=== PATIENT | female | born 1975 | race Caucasian/White ===

== ENCOUNTER 2017-06-09 23:35 | Observation (INO) | payer OTHER ==
[2017-06-10 00:09] LABS: URINE HCG POC HCG POSITIVE (Negative)
[2017-06-10 00:15] LABS: BILIRUBIN,URINE SMALL (NEG); CLARITY,URINE CLEAR; COLOR,URINE AMBER; GLUCOSE,URINE NEGATIVE (NEG); NITRITE,URINE NEGATIVE (NEG); PROTEIN,URINE 30 mg/dL (NEG-TRACE)
[2017-06-10 00:25] LABS: BACTERIA,URINE MODERATE /HPF (0-FEW); RBC,URINE OCC /HPF (0-2); SQUAMOUS EPITHELIAL CELL,UR MANY /LPF
[2017-06-10] MEDS: IV NORMAL SALINE 1000ML BAG 1,000 ML IV ×2 (00:26)
[2017-06-10 00:42] LABS: ADD MAN DIFF? NO
[2017-06-10 00:47] LABS: BASO % 0 % (0-3); EOS # 0.4 x10^3/uL (0.0-0.7); EOS % 3 % (0-3); HEMATOCRIT 41.5 % (36.0-47.0); HEMOGLOBIN 13.5 g/dL (12.0-15.5); LYMPH % 18 % (24-48); MEAN CORPUSCULAR HEMOGLOBIN 28 pg (25-35); MEAN CORPUSCULAR HGB CONC 32 g/dL (31-37); MEAN CORPUSCULAR VOLUME 85 fL (79-100); MONO # 0.6 x10^3/uL (0.0-1.1); MONO % 6 % (0-9); NEUT # 8.3 x10^3uL (1.8-7.7); NEUT % 73 % (31-73); PLATELET COUNT 437 x10^3/uL (140-400); RED BLOOD COUNT 4.89 x10^6/uL (3.50-5.40); RED CELL DISTRIBUTION WIDTH 14.5 % (11.5-14.5); WHITE BLOOD COUNT 11.4 x10^3/uL (4.0-11.0)
[2017-06-10 00:57] LABS: ANION GAP 7 (6-14); BLOOD UREA NITROGEN 11 mg/dL (7-20); BUN/CREATININE RATIO 16 (6-20); CALCIUM 8.4 mg/dL (8.5-10.1); CARBON DIOXIDE 31 mmol/L (21-32); CHLORIDE 99 mmol/L (98-107); CREATININE 0.7 mg/dL (0.6-1.0); GFR 92.2; GLUCOSE 166 mg/dL (70-99); POTASSIUM 4.1 mmol/L (3.5-5.1); SODIUM 137 mmol/L (136-145)
[2017-06-10 01:11] LABS: ALBUMIN 3.4 g/dL (3.4-5.0); ALBUMIN/GLOBULIN RATIO 0.9 (1.0-1.7); ALK PHOS 75 U/L (46-116); ALT (SGPT) 38 U/L (14-59); AST (SGOT) 24 U/L (15-37); TOTAL BILIRUBIN 0.1 mg/dL (0.2-1.0); TOTAL PROTEIN 7.4 g/dL (6.4-8.2)
[2017-06-10] MEDS ORDERED: IV NORMAL SALINE 1000ML BAG 1,000 ML IV ×2 (02:30)
[2017-06-10] MEDS: ONDANSETRON PF 4 MG/2 ML VIAL. IV ×2 (03:06)
[2017-06-10] MEDS: fentaNYL PF VIAL 100 MCG/2 ML VIAL IV ×6 (03:07→05:44)
[2017-06-10] MEDS ORDERED: MIDAZOLAM HCL/PF 2 MG/2 ML VIAL. ×2 (03:22)
[2017-06-10] MEDS ORDERED: SUCCINYLCHOLINE 200 MG/10 ML VIAL. ×2 (03:22)
[2017-06-10] MEDS ORDERED: fentaNYL PF VIAL 100 MCG/2 ML VIAL ×6 (03:22→05:27)
[2017-06-10] MEDS ORDERED: SEVOFLURANE 61 TO 120 MINUTES. IH ×2 (03:22)
[2017-06-10] MEDS ORDERED: ROCURONIUM 50 MG/5 ML VIAL. ×2 (03:23)
[2017-06-10] MEDS ORDERED: NEOSTIGMINE METHYLSULFATE 5 MG/5 ML SYRINGE. ×2 (03:23)
[2017-06-10] MEDS ORDERED: GLYCOPYRROLATE 1 MG/5 ML VIAL. ×2 (03:23)
[2017-06-10] MEDS ORDERED: LIDOCAINE 2% PF Vial for OR 5 ML VIAL. ×2 (03:24)
[2017-06-10] MEDS ORDERED: KETOROLAC 30 MG/ML INJ FOR OR. INJ ×2 (03:25)
[2017-06-10] MEDS ORDERED: PROPOFOL 20 ML IV ×2 (03:25)
[2017-06-10] MEDS ORDERED: DEXAMETHASONE SOD PHOS 20 MG/5 ML VIAL. ×2 (03:25)
[2017-06-10] MEDS ORDERED: ONDANSETRON PF 4 MG/2 ML VIAL. IV ×6 (03:30→05:15)
[2017-06-10] MEDS ORDERED: LIDOCAINE 1% PF 2 ML VIAL. ID ×2 (03:30)
[2017-06-10] MEDS ORDERED: MORPHINE SULFATE 2 MG/ML DISP.SYRIN. IV ×2 (03:30)
[2017-06-10] MEDS ORDERED: PROCHLORPERAZINE 10 MG/2 ML VIAL. IV ×4 (03:30→05:15)
[2017-06-10] MEDS ORDERED: fentaNYL PF VIAL 100 MCG/2 ML VIAL IV ×2 (03:30)
[2017-06-10] MEDS ORDERED: HYDROmorphone 2 MG/ML VIAL IV ×2 (03:30)
[2017-06-10] MEDS ORDERED: ceFAZolin 1GM IVPB FOR OMNI 100 ML IV ×2 (04:11)
[2017-06-10] MEDS ORDERED: CALCIUM CARBONATE 500 MG TAB.CHEW PO ×2 (05:15)
[2017-06-10] MEDS ORDERED: DEXTROSE 50% 25 GM / 50ML DISP.SYRIN. IV ×2 (05:15)
[2017-06-10] MEDS ORDERED: diphenhydrAMINE HCL 25 MG CAPSULE PO ×2 (05:15)
[2017-06-10] MEDS ORDERED: SIMETHICONE 80 MG TAB.CHEW PO ×2 (05:15)
[2017-06-10] MEDS ORDERED: diphenhydrAMINE 50 MG/ML VIAL IV ×2 (05:15)
[2017-06-10] MEDS ORDERED: 0.9 % SODIUM CHLORIDE 10 ML DISP.SYRIN. IV ×2 (05:15)
[2017-06-10] MEDS ORDERED: ZOLPIDEM 5 MG TABLET. PO ×2 (05:15)
[2017-06-10] MEDS: BUPIVACAINE-EPI 0.25%-1:200000 50 ML VIAL. ×2 (05:55)
[2017-06-10] MEDS: diphenhydrAMINE 50 MG/ML VIAL IVP ×2 (06:13)
[2017-06-10] MEDS: IV RINGERS,LACTATED 1000ML 1,000 ML IV ×2 (06:34)
[2017-06-10] MEDS: KETOROLAC 30 MG/ML INJ. IV ×2 (08:14)
[2017-06-10] MEDS: GABAPENTIN 300 MG CAPSULE. PO ×2 (08:15)
[2017-06-10] MEDS: oxyCODONE/APAP 5/325 1 TAB TABLET PO ×2 (11:46)
[2017-06-10 12:06] LABS: BASO % 0 % (0-3); EOS % 0 % (0-3); HEMOGLOBIN 12.3 g/dL (12.0-15.5); LYMPH # 0.8 x10^3/uL (1.0-4.8); LYMPH % 5 % (24-48); MEAN CORPUSCULAR HEMOGLOBIN 27 pg (25-35); MEAN CORPUSCULAR HGB CONC 32 g/dL (31-37); MEAN CORPUSCULAR VOLUME 85 fL (79-100); MONO # 0.1 x10^3/uL (0.0-1.1); MONO % 1 % (0-9); NEUT # 15.6 x10^3uL (1.8-7.7); NEUT % 94 % (31-73); PLATELET COUNT 416 x10^3/uL (140-400); RED BLOOD COUNT 4.49 x10^6/uL (3.50-5.40); RED CELL DISTRIBUTION WIDTH 14.1 % (11.5-14.5); WHITE BLOOD COUNT 16.5 x10^3/uL (4.0-11.0)
[2017-06-10 12:10] LABS: ADD MAN DIFF? YES
[2017-06-10 12:42] LABS: % ATYL 1 % (0-0); % BANDS 6 % (0-9); % LYMPHS 4 % (24-48); % SEGS 89 % (35-66); PLT ESTIMATE ADEQUATE (ADEQUATE)
== END 2017-06-10 15:22 | disposition home or self-care (01) ==
LOC: ER 23:35 → 3 NORTH 06-10 02:35
DX: O00.101 Right tubal pregnancy without intrauterine pregnancy (principal); D25.9 Leiomyoma of uterus, unspecified; N80.8 Other endometriosis; N83.8 Other noninflammatory disorders of ovary, fallopian tube and broad ligament; Z87.59 Personal history of other complications of pregnancy, childbirth and the puerperium
CPT/HCPCS: 36415; 76801; 76817; 80053; 81001; 81025; 84702; 85007; 85025; 86900; 86901; 87086; 87186; 88305; 96374; 96375; 99285; A4215; C1782; G0378; G0379; J0330; J0690; J1100; J1200; J1885; J2250; J2405; J2704; J2710; J3010; J3490; J7030; J7120

== ENCOUNTER 2018-02-10 11:15 | Emergency (ER) | payer OTHER ==
[~2018-02-10] VITALS: Ht 160 cm; Wt 117.9 kg
[~2018-02-10 11:15] MED LIST: METR500T PO; OXYC-323 PO; PREN1TAB58 PO
[2018-02-10 11:50] LABS: BILIRUBIN,URINE NEGATIVE (NEG); CLARITY,URINE CLEAR; COLOR,URINE YELLOW; NITRITE,URINE NEGATIVE (NEG); PH,URINE 5.5; PROTEIN,URINE NEGATIVE (NEG-TRACE); UROBILINOGEN,URINE 0.2 mg/dL (0.2 mg/dL)
[2018-02-10] MEDS ORDERED: ONDANSETRON PF 4 MG/2 ML VIAL. IV ONE (12:00)
[2018-02-10] MEDS ORDERED: fentaNYL PF VIAL 100 MCG/2 ML VIAL IV ONE (12:00)
[2018-02-10 12:06] LABS: BACTERIA,URINE FEW /HPF (0-FEW); RBC,URINE RARE /HPF (0-2); SQUAMOUS EPITHELIAL CELL,UR MANY /LPF; WBC,URINE RARE /HPF (0-4)
[2018-02-10 12:07] LABS: SPERM,URINE PRESENT /HPF
[2018-02-10 12:16] LABS: BASO % 0 % (0-3); EOS # 0.4 x10^3/uL (0.0-0.7); EOS % 6 % (0-3); HEMATOCRIT 44.4 % (36.0-47.0); LYMPH # 1.5 x10^3/uL (1.0-4.8); LYMPH % 23 % (24-48); MEAN CORPUSCULAR HEMOGLOBIN 29 pg (25-35); MEAN CORPUSCULAR HGB CONC 34 g/dL (31-37); MEAN CORPUSCULAR VOLUME 85 fL (79-100); MONO # 0.3 x10^3/uL (0.0-1.1); MONO % 5 % (0-9); NEUT # 4.2 x10^3uL (1.8-7.7); NEUT % 66 % (31-73); PLATELET COUNT 331 x10^3/uL (140-400); RED BLOOD COUNT 5.22 x10^6/uL (3.50-5.40); RED CELL DISTRIBUTION WIDTH 13.9 % (11.5-14.5); WHITE BLOOD COUNT 6.5 x10^3/uL (4.0-11.0)
[2018-02-10 12:26] LABS: CALCIUM 8.9 mg/dL (8.5-10.1); CREATININE 0.7 mg/dL (0.6-1.0); GFR 92.2; POTASSIUM 3.9 mmol/L (3.5-5.1)
[2018-02-10] MEDS ORDERED: IOHEXOL 300 MG/ML 100ML VIAL. IV ONE (12:30)
[2018-02-10] MEDS ORDERED: IOHEXOL 240 MG/ML 50ML VIAL. PO ONE (12:30)
[2018-02-10] MEDS ORDERED: CONTRAST GIVEN. MC PRN (12:30)
[2018-02-10 12:31] LABS: ALBUMIN 3.6 g/dL (3.4-5.0); ALBUMIN/GLOBULIN RATIO 0.9 (1.0-1.7); TOTAL BILIRUBIN 0.5 mg/dL (0.2-1.0); TOTAL PROTEIN 7.5 g/dL (6.4-8.2)
[2018-02-10] MEDS ORDERED: IV NORMAL SALINE 1000ML BAG 1,000 ML IV ONE (13:00)
--- NOTE | 2018-02-10 13:46 | RAD ---
EXAM: Abdomen and pelvis CT with intravenous contrast. HISTORY: Nausea, vomiting, diarrhea and pain. TECHNIQUE: Computed tomographic images of the abdomen and pelvis were obtained following the administration of 75 cc Omnipaque 300 intravenous contrast. Multiplanar reformatting was performed. *One or more of the following individualized dose reduction techniques were utilized for this examination: 1. Automated exposure control. 2. Adjustment of the mA and/or kV according to patient size. 3. Use of iterative reconstruction technique. COMPARISON: None. FINDINGS: Evaluation of the lower thorax demonstrates linear and posterior dependent atelectasis. There is no infiltrate or pleural effusion. The heart is normal in size. There is hepatic steatosis and hepatomegaly. No focal hepatic lesion is seen. The gallbladder, pancreas, spleen, adrenal glands and kidneys are unremarkable. There is no appendicitis. There is no bowel obstruction. There is sigmoid diverticulosis without evidence of diverticulitis. There is a small fat-containing umbilical hernia. There is a 1.9 cm peripherally enhancing left ovarian follicular cyst. There is a soft tissue structure immediately adjacent to the superior right uterine fundus measuring 4.4 cm. This appears separate from the right ovary and is most suggestive of a subserosal uterine fibroid. There is no lymphadenopathy. There is no suspicious osseous lesion. There is grade 1 anterolisthesis with pars interarticularis defects and advanced degenerative change at L5-S1. There is associated foraminal stenosis at this level. IMPRESSION: 1. 1.9 cm peripherally enhancing left ovarian follicular cyst, likely an involuting cyst. 2. Suspected 4.4 cm subserosal right uterine fibroid. 3. Hepatomegaly and hepatic steatosis. 4. Sigmoid diverticulosis. 5. Small fat-containing abdominal hernia. 6. L5-S1 pars defects with associated grade 1 listhesis and degenerative change. Electronically signed by: Samara Urbina MD (02/10/2018 1:43 PM) [place] [id number]
[2018-02-10] MEDS ORDERED: METR500T PO (14:16)
[2018-02-10] MEDS ORDERED: CIPR500T94 PO (14:16)
--- NOTE | 2018-02-10 14:17 | PHYS DOC ---
Past Medical History Past Medical History: Other Additional Past Medical Histor: ECTOPIC PREG Past Surgical History: Other Additional Past Surgical Histo: brain surgery, POSSIBLE OOPHORECTOMY Alcohol Use: None Drug Use: None Adult General Chief Complaint Chief Complaint: ABDOMINAL PAIN HPI HPI Patient is a 42 year old female who presents with complaints of nausea, vomiting and diarrhea x 3 days. The patient states that she ate pizza and drank on Thursday. She states that she has been having her symptoms since then. She denies fever. The patient is also complaining of pelvic pain and pain in the lower left side of her abdomen. She denies abnormal vaginal bleeding or possibility of . Review of Systems Review of Systems Constitutional: Denies fever or chills [] Eyes: Denies change in visual acuity, redness, or eye pain [] HENT: Denies nasal congestion or sore throat [] Respiratory: Denies cough or shortness of breath [] Cardiovascular: No additional information not addressed in HPI [] GI: See history of present illness : Denies dysuria or hematuria [] Musculoskeletal: Denies back pain or joint pain [] Integument: Denies rash or skin lesions [] Neurologic: Denies headache, focal weakness or sensory changes [] Endocrine: Denies polyuria or polydipsia [] All other systems were reviewed and found to be within normal limits, except as documented in this note. Current Medications Current Medications Current Medications Medications (Trade) Dose Ordered Sig/Harsh Start Time Stop Time Status Last Admin Dose Admin Fentanyl Citrate (Fentanyl 2ml Vial) 50 mcg 1X ONCE 02/10/18 12:00 02/10/18 12:01 DC 02/10/18 12:11 50 MCG Info (CONTRAST GIVEN -- Rx MONITORING) 1 each PRN DAILY PRN 02/10/18 12:30 02/10/18 15:01 DC Iohexol (Omnipaque 240 Mg/ml) 30 ml 1X ONCE 02/10/18 12:30 02/10/18 12:31 DC 02/10/18 12:30 30 ML Iohexol (Omnipaque 300 Mg/ml) 75 ml 1X ONCE 02/10/18 12:30 02/10/18 12:31 DC 02/10/18 12:30 75 ML Ondansetron HCl (Zofran) 4 mg 1X ONCE 02/10/18 12:00 02/10/18 12:01 DC 02/10/18 12:10 4 MG Sodium Chloride 1,000 ml @ 1,000 mls/hr 1X ONCE 02/10/18 13:00 02/10/18 13:59 DC 02/10/18 12:56 1,000 MLS/HR Allergies Allergies Allergies Coded Allergies Type Severity Reaction Last Updated Verified No Known Drug Allergies 06/10/17 No Physical Exam Physical Exam Constitutional: Well developed, well nourished, no acute distress, non-toxic appearance. [] HENT: Normocephalic, atraumatic, bilateral external ears normal, oropharynx moist, no oral exudates, nose normal. [] Eyes: PERRLA, EOMI, conjunctiva normal, no discharge. [] Neck: Normal range of motion, no tenderness, supple, no stridor. [] Cardiovascular:Heart rate regular rhythm, no murmur [] Lungs & Thorax: Bilateral breath sounds clear to auscultation [] Abdomen: Bowel sounds normal, soft, tenderness to left lower quadrant, no masses , no pulsatile masses. [] Skin: Warm, dry, no erythema, no rash. [] Back: No tenderness, no CVA tenderness. [] Extremities: No tenderness, no cyanosis, no clubbing, ROM intact, no edema. [] Neurologic: Alert and oriented X 3, normal motor function, normal sensory function, no focal deficits noted. [] Psychologic: Affect normal, judgement normal, mood normal. [] Current Patient Data Vital Signs Vital Signs Date Time Temp Pulse Resp B/P (MAP) Pulse Ox O2 Delivery O2 Flow Rate FiO2 02/10/18 14:29 82 19 169/96 (120) 98 Room Air 02/10/18 11:32 98.7 98.7 Lab Values Laboratory Tests Test 02/10/18 11:37 02/10/18 11:40 02/10/18 11:51 Urine Collection Type Unknown Urine Color Yellow Urine Clarity Clear Urine pH 5.5 Urine Specific [place] >=1.030 Urine Protein Negative mg/dL (NEG-TRACE) Urine Glucose (UA) >=1000 mg/dL (NEG) Urine Ketones (Stick) 40 mg/dL (NEG) Urine Blood Negative (NEG) Urine Nitrite Negative (NEG) Urine Bilirubin Negative (NEG) Urine Urobilinogen Dipstick 0.2 mg/dL (0.2 mg/dL) Urine Leukocyte Esterase Negative (NEG) Urine RBC Rare /HPF (0-2) Urine WBC Rare /HPF (0-4) Urine Squamous Epithelial Cells Many /LPF Urine Bacteria Few /HPF (0-FEW) Urine Sperm Present /HPF POC Urine HCG, Qualitative Hcg negative (Negative) White Blood Count 6.5 x10^3/uL (4.0-11.0) Red Blood Count 5.22 x10^6/uL (3.50-5.40) Hemoglobin 15.0 g/dL (12.0-15.5) Hematocrit 44.4 % (36.0-47.0) Mean Corpuscular Volume 85 fL (79-100) Mean Corpuscular Hemoglobin 29 pg (25-35) Mean Corpuscular Hemoglobin Concent 34 g/dL (31-37) Red Cell Distribution Width 13.9 % (11.5-14.5) Platelet Count 331 x10^3/uL (140-400) Neutrophils (%) (Auto) 66 % (31-73) Lymphocytes (%) (Auto) 23 % (24-48) L Monocytes (%) (Auto) 5 % (0-9) Eosinophils (%) (Auto) 6 % (0-3) H Basophils (%) (Auto) 0 % (0-3) Neutrophils # (Auto) 4.2 x10^3uL (1.8-7.7) Lymphocytes # (Auto) 1.5 x10^3/uL (1.0-4.8) Monocytes # (Auto) 0.3 x10^3/uL (0.0-1.1) Eosinophils # (Auto) 0.4 x10^3/uL (0.0-0.7) Basophils # (Auto) 0.0 x10^3/uL (0.0-0.2) Sodium Level 138 mmol/L (136-145) Potassium Level 3.9 mmol/L (3.5-5.1) Chloride Level 99 mmol/L (98-107) Carbon Dioxide Level 29 mmol/L (21-32) Anion Gap 10 (6-14) Blood Urea Nitrogen 5 mg/dL (7-20) L Creatinine 0.7 mg/dL (0.6-1.0) Estimated GFR (Cockcroft-Gault) 92.2 BUN/Creatinine Ratio 7 (6-20) Glucose Level 322 mg/dL (70-99) H Calcium Level 8.9 mg/dL (8.5-10.1) Total Bilirubin 0.5 mg/dL (0.2-1.0) Aspartate Amino Transferase (AST) 27 U/L (15-37) Alanine Aminotransferase (ALT) 45 U/L (14-59) Alkaline Phosphatase 108 U/L (46-116) Total Protein 7.5 g/dL (6.4-8.2) Albumin 3.6 g/dL (3.4-5.0) Albumin/Globulin Ratio 0.9 (1.0-1.7) L Amylase Level 18 U/L (25-115) L Laboratory Tests 02/10/18 11:51 Laboratory Tests 02/10/18 11:51 EKG EKG [] Radiology/Procedures Radiology/Procedures []PATIENT: DANA RAMIREZ AACCOUNT: [id number]#: [id number] : 1975 LOCATION: ER AGE: 42 SEX: F EXAM STATUS: REG ER ORD. PHYSICIAN: TARSHA RECINOS APRN REASON: abdominal pain x 3 days PROCEDURE: CT ABD PELV W/ORAL&IV CONTRAST EXAM: Abdomen and pelvis CT with intravenous contrast. HISTORY: Nausea, vomiting, diarrhea and pain. TECHNIQUE: Computed tomographic images of the abdomen and pelvis were obtained following the administration of 75 cc Omnipaque 300 intravenous contrast. Multiplanar reformatting was performed. *One or more of the following individualized dose reduction techniques were utilized for this examination: 1. Automated exposure control. 2. Adjustment of the mA and/or kV according to patient size. 3. Use of iterative reconstruction technique. COMPARISON: None. FINDINGS: Evaluation of the lower thorax demonstrates linear and posterior dependent atelectasis. There is no infiltrate or pleural effusion. The heart is normal in size. There is hepatic steatosis and hepatomegaly. No focal hepatic lesion is seen. The gallbladder, pancreas, spleen, adrenal glands and kidneys are unremarkable. There is no appendicitis. There is no bowel obstruction. There is sigmoid diverticulosis without evidence of diverticulitis. There is a small fat-containing umbilical hernia. There is a 1.9 cm peripherally enhancing left ovarian follicular cyst. There is a soft tissue structure immediately adjacent to the superior right uterine fundus measuring 4.4 cm. This appears separate from the right ovary and is most suggestive of a subserosal uterine fibroid. There is no lymphadenopathy. There is no suspicious osseous lesion. There is grade 1 anterolisthesis with pars interarticularis defects and advanced degenerative change at L5-S1. There is associated foraminal stenosis at this level. IMPRESSION: 1. 1.9 cm peripherally enhancing left ovarian follicular cyst, likely an involuting cyst. 2. Suspected 4.4 cm subserosal right uterine fibroid. 3. Hepatomegaly and hepatic steatosis. 4. Sigmoid diverticulosis. 5. Small fat-containing abdominal hernia. 6. L5-S1 pars defects with associated grade 1 listhesis and degenerative change. Electronically signed by: Samara Elizabeth MD (02/10/2018 1:43 PM) [place] [id number] DICTATED and SIGNED BY: SAMARA ELIZABETH MD DATE: 02/10/18 8172 Course & Med Decision Making Course & Med Decision Making Pertinent Labs and Imaging studies reviewed. (See chart for details) []The patient had multiple findings on her CT which would explain her left- sided pain including diverticulosis, fibroids as well as an ovarian cyst the left. The patient also has extremely elevated blood sugar with no known history of diabetes. She will be started on metformin in the emergency department and is to follow-up with primary care for further evaluation of these findings. She is in agreement with this plan. Dragon Disclaimer Dragon Disclaimer This electronic medical record was generated, in whole or in part, using a voice recognition dictation system. Departure Departure Impression: Primary Impression: Diverticulosis Additional Impressions: Ovarian cyst Fibroid Diabetes Disposition: 01 HOME, SELF-CARE Condition: STABLE Referrals: NO PCP (PCP) ANGELITA EPSTEIN Jr, MD, SCOTT S MD Patient Instructions: Diabetes, FAQs, Diverticulosis, Ovarian Cyst, Uterine Fibroid, Veui-wt-Palm Additional Instructions: The medication as directed. Increase fluids and rest. Follow-up with gynecology for further evaluation of your ovarian cyst and uterine fibroid. Follow-up with GI for your diverticulosis. Scripts Metformin Hcl (METFORMIN HCL) 500 Mg Tablet 500 MG PO BIDWMEALS for ANTI-DIABETIC for 30 Days, #60 TAB 0 Refills Prov: GRTARSHA SHETH APRN 02/10/18 Metronidazole (FLAGYL) 500 Mg Tablet 1 TAB PO BID, #14 TAB Prov: TARSHA RECINOS APRN 02/10/18 Ciprofloxacin Hcl (CIPRO) 500 Mg Tablet 1 TAB PO BID, #20 TAB Prov: TARSHA RECINOS APRN 02/10/18 Problem Qualifiers TARSHA RECINOS APRN Feb 10, 2018 14:17
[2018-02-10] MEDS ORDERED: METF500T16 PO (14:20)
[2018-02-10 14:29] VITALS: BP 169/96
== END 2018-02-10 14:55 | disposition home or self-care (01) ==
LOC: ER 11:15
DX: N83.02 Follicular cyst of left ovary (principal); K57.90 Diverticulosis of intestine, part unspecified, without perforation or abscess without bleeding; D25.2 Subserosal leiomyoma of uterus; K46.9 Unspecified abdominal hernia without obstruction or gangrene; E11.9 Type 2 diabetes mellitus without complications
CPT/HCPCS: 36415; 74177; 80053; 81001; 81025; 82150; 85025; 96361; 96374; 96375; 99285; J2405; J3010; J7030; Q9966; Q9967

== ENCOUNTER 2020-01-11 13:07 | Emergency (ER) | payer SELFPAY ==
[~2020-01-11] VITALS: Ht 160 cm; Wt 117.0 kg
[~2020-01-11 13:07] MED LIST changes: +CIPR500T94 PO; +METF500T16 PO; -OXYC-323 PO; +OXYC1TAB15 PO
[2020-01-11] MEDS ORDERED: ONDANSETRON ODT 4 MG TAB.RAPDIS. PO ONE (13:45)
[2020-01-11] MEDS ORDERED: ASPIRIN 325 MG TABLET PO ONE (13:45)
[2020-01-11] MEDS ORDERED: NITROGLYCERIN SUBLINGUAL 0.4 MG BOTTLE OF 25. SL PRN (13:45)
--- NOTE | 2020-01-11 13:51 | PHYS DOC ---
Past Medical History Past Medical History: Other Additional Past Medical Histor: ECTOPIC PREG Past Surgical History: Other Additional Past Surgical Histo: brain surgery, POSSIBLE OOPHORECTOMY Smoking Status: Never Smoker Alcohol Use: None Drug Use: None General Adult EDM: Chief Complaint: CHEST PAIN HPI: HPI: Patient is a 44 year old female who presents with patient states she has had mid chest pressure for the last 3 days. She states is continuous. She states she is also having some nausea but no vomiting. She states she does not have any shortness of breath. She rates this discomfort at a 5 out of 10. She went to a urgent care today and they did an EKG and sent her here. Patient is hypertensive in the 170s. She states that she does have a history of hyperten judy and takes no medications. She states she did not take any aspirin she is not on any other blood thinner. Patient has a history of diabetes, smoker, hypertension, ectopic . Patient denies any family history of heart attack, heart disease, or early from heart problems. patient is given 325 mg of aspirin in the ED. I have also ordered nitroglycerin sublingual. Patient denies dizziness, syncope, shortness of breath, numbness or tingling, vision changes, abdominal pain, vomiting, diarrhea, fever, cough, headache. Review of Systems: Review of Systems: Constitutional: Denies fever or chills. [] Eyes: Denies change in visual acuity. [] HENT: Denies nasal congestion or sore throat. [] Respiratory: Denies cough or shortness of breath. [] Cardiovascular: +chest pain or denies edema. [] GI: Denies abdominal pain. +nausea, denies vomiting, bloody stools or diarrhea. [] : Denies dysuria. [] Musculoskeletal: Denies back pain or joint pain. [] Integument: Denies rash. [] Neurologic: Denies headache, focal weakness or sensory changes. [] Endocrine: Denies polyuria or polydipsia. [] Lymphatic: Denies swollen glands. [] Psychiatric: Denies depression or anxiety. [] Heart Score: HEART Score for Chest Pain: HEART Score for Chest Pain Response (Comments) Value History Slighlty/Non-Suspicious 0 ECG Normal 0 Age < 45 0 Risk Factors >3 Risk Factors or Hx CAD 2 Troponin < Normal Limit 0 Total 2 Risk Factors: Risk Factors: DM, Current or recent (<one month) smoker, HTN, HLP, family history of CAD, obesity. Risk Scores: Score 0 - 3: 2.5% MACE over next 6 weeks - Discharge Home Score 4 - 6: 20.3% MACE over next 6 weeks - Admit for Clinical Observation Score 7 - 10: 72.7% MACE over next 6 weeks - Early Invasive Strategies Current Medications: Current Medications Medications (Trade) Dose Ordered Sig/Harsh Start Time Stop Time Status Last Admin Dose Admin Aspirin (Saúl Aspirin) 325 mg 1X ONCE 01/11/20 13:45 01/11/20 13:46 Nitroglycerin (Nitrostat) 0.4 mg PRN Q5MIN PRN 01/11/20 13:45 Ondansetron HCl (Zofran Odt) 4 mg 1X ONCE 01/11/20 13:45 01/11/20 13:46 Allergies: Allergies: Allergies Coded Allergies Type Severity Reaction Last Updated Verified No Known Drug Allergies 06/10/17 No Physical Exam: PE: Constitutional: Well developed, well nourished, no acute distress, non-toxic appearance. [] HENT: Normocephalic, atraumatic, bilateral external ears normal, oropharynx moist, no oral exudates, nose normal. [] Eyes: PERRLA, EOMI, conjunctiva normal, no discharge. [] Neck: Normal range of motion, no tenderness, supple, no stridor. [] Cardiovascular:Heart rate regular rhythm, no murmur [] Lungs & Thorax: Bilateral breath sounds clear to auscultation [] Abdomen: Bowel sounds normal, soft, no tenderness, no masses, no pulsatile masses. [] Skin: Warm, dry, no erythema, no rash. [] Back: No tenderness, no CVA tenderness. [] Extremities: No tenderness, no cyanosis, no clubbing, ROM intact, no edema. [] Neurologic: Alert and oriented X 3, normal motor function, normal sensory function, no focal deficits noted. [] Psychologic: Affect normal, judgement normal, mood normal. Normal physical exam [] Current Patient Data: Labs: Laboratory Tests Test 01/11/20 13:41 POC Urine HCG, Qualitative Hcg negative (Negative) EKG: EK and read by Dr. Sandoval as sinus rhythm and no STEMI. [] Radiology/Procedures: Radiology/Procedures: [] Impression: [place] [id number] [place] [address] IMAGING REPORT Signed PATIENT: DANA RAMIREZ AACCOUNT: [id number] : 1975 LOCATION: ER AGE: 44 SEX: F EXAM STATUS: REG ER ORD. PHYSICIAN: LAURIE VILLA APRN REASON: chest pain PROCEDURE: PORTABLE CHEST 1V Study: CR PORTABLE CHEST 1V Indication: Chest pain. Comparison: None. Findings: The cardiomediastinal silhouette and sharron are within normal limits given AP technique. Asymmetric elevation of the right hemidiaphragm. No lobar consolidation, pleural effusion or pneumothorax. Impression: No acute radiographic abnormality of the chest. Electronically signed by: TESHA DOBBINS MD (01/11/2020 1:56 PM) [id number] DICTATED and SIGNED BY: TESHA DOBBINS MD DATE: 01/11/20 1356 [facility] [address] [place] [address] IMAGING REPORT Signed PATIENT: DANA RAMIREZ AACCOUNT: [id number] : 1975 LOCATION: ER AGE: 44 SEX: F EXAM STATUS: REG ER ORD. PHYSICIAN: LAURIE VILLA APRN REASON: mid chest pain, htn PROCEDURE: CT ANGIOGRAPHY CHEST EXAM: CT chest with contrast - pulmonary embolus protocol CLINICAL HISTORY: mid chest pain, htn COMPARISON: None. TECHNIQUE: CT of the chest following the administration of intravenous contrast during the pulmonary arterial phase. Axial, coronal and sagittal reformatted images were generated including MIP images. ---PQRS compliance statement - One or more of the following individualized dose reduction techniques were utilized for this study: 1. Automated exposure control 2. Adjustment of the mA and/or kV according to patient size 3. Use of iterative reconstruction technique--- FINDINGS: CHEST: Diagnostic quality: Suboptimal. Pulmonary emboli: No pulmonary emboli to the level of the segmental branches. More peripheral vessels are not well assessed. Right heart strain: None Pulmonary arteries: Normal in caliber. Heart is not enlarged. No pericardial effusion. No mediastinal or hilar lymphadenopathy. No axillary lymphadenopathy. Linear and bandlike opacities in the middle lobe and lower lobes likely scarring/atelectasis. 5 x 3 mm fissural lung nodule along the left major fissure. Visualized Upper abdomen: Hepatic hypoattenuation likely fatty liver. Focal fatty sparing in the region of gallbladder fossa. Upper abdomen is otherwise unremarkable. Bones: No aggressive osseous lesion is seen although evaluation of the bony structures limited given MIP reconstructions. IMPRESSION: 1. Suboptimal contrast bolus. Within these constraints no definite pulmonary embolus the level of the subsegmental branches. More peripheral vessels are not well assessed. 2. Hepatic hypoattenuation, likely fatty liver. 3. Left major fissure lung nodule measures 5 x 3 mm. Per Fleischner Society guidelines for incidentally found solid nodules measuring less than 6 mm, no follow-up is necessary if patient is considered at low risk for lung cancer. If patient is considered to be at high risk, such as with history of smoking, then CT follow-up in about 12 months can be considered. Electronically signed by: Sammy Lin MD (01/11/2020 4:37 PM) [facility] DICTATED and SIGNED BY: SAMMY LIN MD DATE: 01/11/201636 Course & Med Decision Making: Course & Med Decision Making Pertinent Labs and Imaging studies reviewed. (See chart for details) See HPI. Patient is alert and oriented x4. Ambulatory with a steady gait. No extremity swelling. Skin pink warm and dry. Speaks in full clear sentences. Lungs are clear to auscultation all lobes. After 1 nitro it brought the patient's pain down to a 1 out of 10. Also brought down her blood pressure into the 150s. Patient states she is feeling better. Patient refused any more nitro after the one given. Blood work unremarkable. Troponin is normal. CTA of the chest is normal. There was a incidental finding of a lung nodule. She states she does have a primary care that she saw for the first time today at [facility] and that she does have follow-up on the but she is going to call the doctor tomorrow. I have gone over the incidental finding on her CT chest. Patient has had 2 troponins and they are both negative. At 1753 patient's blood pressure is 156/87. Patient states that she is feeling much better. She does not have chest pain at this time. [] Bay Disclaimer: Bay Disclaimer: This electronic medical record was generated, in whole or in part, using a voice recognition dictation system. Departure Departure Impression: Primary Impression: Radiologic findings of lung field, abnormal Additional Impression: Chest pain Qualified Codes: R07.9 - Chest pain, unspecified Disposition: HOME, SELF-CARE Condition: STABLE Referrals: NO PCP (PCP) PENNY THOMASON MD Patient Instructions: Chest Pain (Nonspecific), Incidental Abdominal Radiological Finding Additional Instructions: Follow-up with your primary care provider. I have also referred you to a cardi ologist that you need to follow-up with. If the pain or pressure comes back and is more severe return to the emergency room. Justicifation of Admission Dx: Justifications for Admission: Justification of Admission Dx: N/A LAURIE VILLA [facility] Jan 11, 2020 13:50
--- NOTE | 2020-01-11 13:59 | RAD ---
Study: CR PORTABLE CHEST 1V Indication: Chest pain. Comparison: None. Findings: The cardiomediastinal silhouette and sharron are within normal limits given AP technique. Asymmetric elevation of the right hemidiaphragm. No lobar consolidation, pleural effusion or pneumothorax. Impression: No acute radiographic abnormality of the chest. Electronically signed by: TESHA DOBBINS MD (01/11/2020 1:56 PM) [id number]
[2020-01-11 14:01] LABS: BILIRUBIN,URINE NEGATIVE (NEG); CLARITY,URINE CLEAR; COLOR,URINE YELLOW; NITRITE,URINE NEGATIVE (NEG); PH,URINE 5.5 (<5.0-8.0); PROTEIN,URINE NEGATIVE (NEG-TRACE); UROBILINOGEN,URINE 0.2 mg/dL (0.2 mg/dL)
[2020-01-11 14:10] LABS: BACTERIA,URINE FEW /HPF (0-FEW); RBC,URINE 0 /HPF (0-2); SQUAMOUS EPITHELIAL CELL,UR MOD /LPF; WBC,URINE RARE /HPF (0-4)
--- NOTE | 2020-01-11 14:12 | EKG ---
[facility] [address] [place] [address] Test Date: 2020-01-11 Test Time: 13:32:53 Pat Name: DANA RAMIREZ Department: Room: Gender: F Rf[employer] Strategist: : 1975 Requested By: LAURIE VILLA Order Number: [id number] Reading MD: Measurements Intervals [place] Rate: 79 P: 53 GA: 140 QRS: -34 QRSD: 78 T: 24 QT: 388 QTc: 446 Interpretive Statements SINUS RHYTHM ABNORMAL LEFT AXIS DEVIATION ABNORMAL ECG RI6.02 No previous ECG available for comparison
[2020-01-11 14:13] LABS: BARBITURATES NEG (NEG); BENZODIAZEPINES NEG (NEG); CANNABINOIDS POS (NEG); COCAINE NEG (NEG); METHADONE NEG (NEG); OPIATES NEG (NEG); PHENCYCLIDINE NEG (NEG)
[2020-01-11 14:14] LABS: AMPHETAMINE/METHAMPHETAMINE NEG (NEG)
[2020-01-11 15:15] LABS: BASO # 0.1 x10^3/uL (0.0-0.2); BASO % 1 % (0-3); EOS # 0.3 x10^3/uL (0.0-0.7); EOS % 4 % (0-3); HEMATOCRIT 42.2 % (36.0-47.0); HEMOGLOBIN 14.2 g/dL (12.0-15.5); LYMPH # 1.9 x10^3/uL (1.0-4.8); LYMPH % 21 % (24-48); MEAN CORPUSCULAR HEMOGLOBIN 29 pg (25-35); MEAN CORPUSCULAR HGB CONC 34 g/dL (31-37); MEAN CORPUSCULAR VOLUME 86 fL (79-100); MONO # 0.4 x10^3/uL (0.0-1.1); MONO % 5 % (0-9); NEUT # 6.2 x10^3/uL (1.8-7.7); NEUT % 70 % (31-73); PLATELET COUNT 280 x10^3/uL (140-400); RED BLOOD COUNT 4.94 x10^6/uL (3.50-5.40); RED CELL DISTRIBUTION WIDTH 14.9 % (11.5-14.5); WHITE BLOOD COUNT 8.9 x10^3/uL (4.0-11.0)
[2020-01-11 15:23] LABS: PREG TEST PT QUAL NEGATIVE (NEG)
[2020-01-11 15:25] LABS: PROTHROMBIN TIME PATIENT 12.8 SEC (11.7-14.0)
[2020-01-11 15:27] LABS: CALCIUM 8.7 mg/dL (8.5-10.1); CREATININE 0.7 mg/dL (0.6-1.0); GFR 91.3; POTASSIUM 3.4 mmol/L (3.5-5.1)
[2020-01-11 15:33] LABS: ALBUMIN 3.7 g/dL (3.4-5.0); ALBUMIN/GLOBULIN RATIO 1.1 (1.0-1.7); TOTAL BILIRUBIN 0.3 mg/dL (0.2-1.0); TOTAL PROTEIN 7.1 g/dL (6.4-8.2)
[2020-01-11] MEDS ORDERED: IV NORMAL SALINE 1000ML BAG 1,000 ML IV ONE (16:00)
[2020-01-11] MEDS ORDERED: IOHEXOL 350 MG/ML 100 ML VIAL. IV ONE (16:15)
[2020-01-11] MEDS ORDERED: CONTRAST GIVEN. MC PRN (16:30)
--- NOTE | 2020-01-11 16:40 | RAD ---
EXAM: CT chest with contrast - pulmonary embolus protocol CLINICAL HISTORY: mid chest pain, htn COMPARISON: None. TECHNIQUE: CT of the chest following the administration of intravenous contrast during the pulmonary arterial phase. Axial, coronal and sagittal reformatted images were generated including MIP images. ---PQRS compliance statement - One or more of the following individualized dose reduction techniques were utilized for this study: 1. Automated exposure control 2. Adjustment of the mA and/or kV according to patient size 3. Use of iterative reconstruction technique--- FINDINGS: CHEST: Diagnostic quality: Suboptimal. Pulmonary emboli: No pulmonary emboli to the level of the segmental branches. More peripheral vessels are not well assessed. Right heart strain: None Pulmonary arteries: Normal in caliber. Heart is not enlarged. No pericardial effusion. No mediastinal or hilar lymphadenopathy. No axillary lymphadenopathy. Linear and bandlike opacities in the middle lobe and lower lobes likely scarring/atelectasis. 5 x 3 mm fissural lung nodule along the left major fissure. Visualized Upper abdomen: Hepatic hypoattenuation likely fatty liver. Focal fatty sparing in the region of gallbladder fossa. Upper abdomen is otherwise unremarkable. Bones: No aggressive osseous lesion is seen although evaluation of the bony structures limited given MIP reconstructions. IMPRESSION: 1. Suboptimal contrast bolus. Within these constraints no definite pulmonary embolus the level of the subsegmental branches. More peripheral vessels are not well assessed. 2. Hepatic hypoattenuation, likely fatty liver. 3. Left major fissure lung nodule measures 5 x 3 mm. Per Fleischner Society guidelines for incidentally found solid nodules measuring less than 6 mm, no follow-up is necessary if patient is considered at low risk for lung cancer. If patient is considered to be at high risk, such as with history of smoking, then CT follow-up in about 12 months can be considered. Electronically signed by: Sammy Bauer MD (01/11/2020 4:37 PM) [facility]
[2020-01-11 18:00] VITALS: BP 156/87
== END 2020-01-11 19:29 | disposition home or self-care (01) ==
LOC: ER 13:07
DX: R07.89 Other chest pain (principal); Q33.8 Other congenital malformations of lung; R11.0 Nausea; Z90.89 Acquired absence of other organs; Z98.890 Other specified postprocedural states
CPT/HCPCS: 36415; 71045; 71275; 80053; 80307; 81001; 81025; 83690; 83880; 84484; 84703; 85025; 85610; 93005; 96360; 99285; J7030; Q9967

== ENCOUNTER 2021-01-15 16:29 | Observation (INO) | payer SELFPAY ==
[~2021-01-15] VITALS: Ht 160 cm; Wt 112.0 kg
[2021-01-15] MEDS ORDERED: IV NORMAL SALINE 1000ML BAG 1,000 ML IV SCH (16:45)
[2021-01-15] MEDS ORDERED: NITROGLYCERIN SUBLINGUAL 0.4 MG BOTTLE OF 25. SL PRN (16:45)
[2021-01-15] MEDS ORDERED: ASPIRIN CHEWABLE 81 MG TABLET. PO ONE (16:45)
[2021-01-15] MEDS ORDERED: ALBUTEROL SULFATE 2.5 MG/3 ML NEBU. NEB ONE (16:45)
[2021-01-15] MEDS ORDERED: methylPREDNISolone SOD SUCC PF 125 MG/2 ML VIAL. IV ONE (16:45)
[2021-01-15 16:55] LABS: BASO # 0.1 x10^3/uL (0.0-0.2); BASO % 1 % (0-3); EOS # 0.5 x10^3/uL (0.0-0.7); EOS % 4 % (0-3); HEMATOCRIT 40.4 % (36.0-47.0); HEMOGLOBIN 13.4 g/dL (12.0-15.5); LYMPH # 1.9 x10^3/uL (1.0-4.8); LYMPH % 18 % (24-48); MEAN CORPUSCULAR HEMOGLOBIN 28 pg (25-35); MEAN CORPUSCULAR HGB CONC 33 g/dL (31-37); MEAN CORPUSCULAR VOLUME 85 fL (79-100); MONO # 0.5 x10^3/uL (0.0-1.1); MONO % 5 % (0-9); NEUT # 7.9 x10^3/uL (1.8-7.7); NEUT % 72 % (31-73); PLATELET COUNT 356 x10^3/uL (140-400); RED BLOOD COUNT 4.72 x10^6/uL (3.50-5.40); RED CELL DISTRIBUTION WIDTH 15.1 % (11.5-14.5); WHITE BLOOD COUNT 10.9 x10^3/uL (4.0-11.0)
--- NOTE | 2021-01-15 17:06 | PHYS DOC ---
Past Medical History Past Medical History: Diabetes-Type II, Hypertension, Other Additional Past Medical Histor: ECTOPIC PREG Past Surgical History: Other Additional Past Surgical Histo: brain surgery, POSSIBLE OOPHORECTOMY Smoking Status: Never Smoker Alcohol Use: None Drug Use: None General Adult EDM: Chief Complaint: CHEST WALL PAIN HPI: HPI: Patient is a 45 year old female who presents with soa, chest pressure type pain to mid and left chest. She states it is there all the time and nothing makes it worse or better. Although while interviewing her she stated that laying flat worsened the pain. States she took two advil without relief. States she has had some nausea but states she gets that way with her anxiety. States that one day she doubled up on her blood pressure medication but it did not help. Rates her discomfort a 8/10. Has not taken any pain medications today. She has a history of htn, and diabetes. Review of Systems: Review of Systems: Constitutional: Denies fever or chills. [] Eyes: Denies change in visual acuity. [] HENT: Denies nasal congestion or sore throat. [] Respiratory: Denies cough or +shortness of breath. [] Cardiovascular: + chest pain or denies edema. [] GI: Denies abdominal pain, +nausea, denies vomiting, bloody stools or diarrhea. [] : Denies dysuria. [] Musculoskeletal: Denies back pain or joint pain. [] Integument: Denies rash. [] Neurologic: Denies headache, focal weakness or sensory changes. [] Endocrine: Denies polyuria or polydipsia. [] Lymphatic: Denies swollen glands. [] Psychiatric: Denies depression or anxiety. [] Heart Score: C/O Chest Pain: Yes HEART Score for Chest Pain: HEART Score for Chest Pain Response (Comments) Value History Slighlty/Non-Suspicious 0 ECG Normal 0 Age < 45 0 Risk Factors 1 or 2 Risk Factors 1 Troponin < Normal Limit 0 Total 1 Risk Factors: Risk Factors: DM, Current or recent (<one month) smoker, HTN, HLP, family history of CAD, obesity. Risk Scores: Score 0 - 3: 2.5% MACE over next 6 weeks - Discharge Home Score 4 - 6: 20.3% MACE over next 6 weeks - Admit for Clinical Observation Score 7 - 10: 72.7% MACE over next 6 weeks - Early Invasive Strategies Current Medications: Current Medications Medications (Trade) Dose Ordered Sig/Harsh Start Time Stop Time Status Last Admin Dose Admin Albuterol Sulfate (Ventolin Neb Soln) 2.5 mg 1X ONCE 01/15/21 16:45 01/15/21 16:46 UNV Aspirin (Aspirin Chewable) 324 mg 1X ONCE 01/15/21 16:45 01/15/21 16:46 UNV Methylprednisolone Sodium Succinate (SOLU-Medrol 125MG VIAL) 125 mg 1X ONCE 01/15/21 16:45 01/15/21 16:46 UNV Nitroglycerin (Nitrostat) 0.4 mg PRN Q5MIN PRN 01/15/21 16:45 01/16/21 16:44 UNV Sodium Chloride 1,000 ml @ 1,000 mls/hr Q1H 01/15/21 16:45 01/15/21 17:44 UNV Allergies: Allergies: Allergies Coded Allergies Type Severity Reaction Last Updated Verified No Known Drug Allergies 06/10/17 No Physical Exam: PE: Constitutional: Well developed, well nourished, no acute distress, non-toxic appearance. [] HENT: Normocephalic, atraumatic, bilateral external ears normal, oropharynx moist, no oral exudates, nose normal. [] Eyes: PERRLA, EOMI, conjunctiva normal, no discharge. [] Neck: Normal range of motion, no tenderness, supple, no stridor. [] Cardiovascular:Heart rate regular rhythm, no murmur [] Lungs & Thorax: Bilateral upper breath sounds expiratory wheeze lower diminished to auscultation [] Abdomen: Bowel sounds normal, soft, no tenderness, no masses, no pulsatile masses. [] Skin: Warm, dry, no erythema, no rash. [] Back: No tenderness, no CVA tenderness. [] Extremities: No tenderness, no cyanosis, no clubbing, ROM intact, no edema. [] Neurologic: Alert and oriented X 3, normal motor function, normal sensory function, no focal deficits noted. [] Psychologic: Affect normal, judgement normal, mood normal. [] EKG: EK and read by Dr Her as Sinus Rhythm and no STEMI[] Radiology/Procedures: Radiology/Procedures: [] Impression: [facility] [address] [place] [address] IMAGING REPORT Signed PATIENT: DAAN RAMIREZ AACCOUNT: [id number] : 1975 LOCATION: ER AGE: 45 SEX: F EXAM STATUS: REG ER ORD. PHYSICIAN: LAURIE VILLA APRN REASON: chest pressure PROCEDURE: PORTABLE CHEST 1V Exam: Chest one view INDICATION: Chest pressure TECHNIQUE: Frontal view of the chest Comparisons: 01/11/2020 FINDINGS: The cardiomediastinal silhouette and pulmonary vessels are within normal limits. The lung and pleural spaces are clear. IMPRESSION: No acute cardiopulmonary process. Electronically signed by: Beatriz Fuller MD (01/15/2021 6:18 PM) [facility] DICTATED and SIGNED BY: BEATRIZ FULLER MD DATE: 01/15/21 [id number] 0 Course & Med Decision Making: Course & Med Decision Making Pertinent Labs and Imaging studies reviewed. (See chart for details) See HPI. Alert and oriented x4. Speaks in full complete sentences. Skin pink warm and dry, Ambulatory with a steady gait. Bilateral upper lung lobes have expiratory wheezes and lower lobes diminished. Blood work unremarkable. Chest x-ray shows no acute findings. Patient is giving dexamethasone and albuterol in the ED. Patient states she does not think that the albuterol helped. She states sitting up it does help. She states laying flat makes it worse. She was given 1 nitro and it took her pain down to a 5. She thinks that the nitro did help. The fact that the nitro did help her pain tells me that this could be cardiac related. Patient agrees to stay for observation. Patient is admitted for observation for Dr. Kennedy. [] Bay Disclaimer: Bay Disclaimer: This electronic medical record was generated, in whole or in part, using a voice recognition dictation system. Departure Departure Impression: Primary Impression: Chest pain Qualified Codes: R07.1 - Chest pain on breathing Additional Impression: Shortness of breath Disposition: ADMITTED INPATIENT Admitting Physician: LONG Condition: STABLE Referrals: NO PCP (PCP) LAURIE VILLA APRN Jan 15, 2021 17:06
[2021-01-15 17:07] LABS: CALCIUM 8.4 mg/dL (8.5-10.1); CREATININE 0.6 mg/dL (0.6-1.0); GFR 108.6; POTASSIUM 3.9 mmol/L (3.5-5.1)
[2021-01-15 17:13] LABS: ALBUMIN 3.5 g/dL (3.4-5.0); MAGNESIUM 1.8 mg/dL (1.8-2.4); TOTAL BILIRUBIN 0.1 mg/dL (0.2-1.0)
[2021-01-15] MEDS ORDERED: IV NORMAL SALINE 1000ML BAG 1,000 ML IV ONE (17:15)
[2021-01-15 17:58] LABS: BILIRUBIN,URINE NEGATIVE (NEG); CLARITY,URINE CLEAR; COLOR,URINE YELLOW; NITRITE,URINE NEGATIVE (NEG); PROTEIN,URINE NEGATIVE (NEG-TRACE)
[2021-01-15 18:04] LABS: BARBITURATES NEG (NEG); BENZODIAZEPINES NEG (NEG); CANNABINOIDS POS (NEG); COCAINE NEG (NEG); METHADONE NEG (NEG); OPIATES NEG (NEG); PHENCYCLIDINE NEG (NEG)
[2021-01-15 18:07] LABS: HYALINE CASTS, URINE FEW /HPF
[2021-01-15 18:08] LABS: BACTERIA,URINE FEW /HPF (0-FEW); WBC,URINE 0 /HPF (0-4)
[2021-01-15 18:10] LABS: AMPHETAMINE/METHAMPHETAMINE NEG (NEG)
--- NOTE | 2021-01-15 18:20 | RAD ---
Exam: Chest one view INDICATION: Chest pressure TECHNIQUE: Frontal view of the chest Comparisons: 01/11/2020 FINDINGS: The cardiomediastinal silhouette and pulmonary vessels are within normal limits. The lung and pleural spaces are clear. IMPRESSION: No acute cardiopulmonary process. Electronically signed by: Beatriz Aldridge MD (01/15/2021 6:18 PM) ARIELLE
[2021-01-15 20:00] VITALS: BP 165/63
[2021-01-15] MEDS ORDERED: ATOR20TA58 PO (20:21)
[2021-01-15] MEDS ORDERED: LISI10TA16 PO (20:21)
[2021-01-15] MEDS ORDERED: METF10007 PO (20:21)
[2021-01-15 23:08] VITALS: BP 158/81
[2021-01-16] MEDS ORDERED: ACETAMINOPHEN 500 MG TABLET PO ONE (00:45)
[2021-01-16 02:57] VITALS: BP 139/72
[2021-01-16 07:00] VITALS: BP 134/69
[2021-01-16] MEDS ORDERED: ACETAMINOPHEN 325 MG TABLET. PO PRN ×2 (08:15)
--- NOTE | 2021-01-16 08:52 | DS ---
ADMISSION DIAGNOSES: Resolving diabetic ketoacidosis, dementia DICTATION ENDS HERE CHADD DR: Marissa TID: [id number]
--- NOTE | 2021-01-16 09:24 | SSS ---
ADMIT DATE: 01/16/2021 SHORT STAY SUMMARY CHIEF COMPLAINT: Chest pain. HISTORY OF PRESENT ILLNESS: The patient is a pleasant 45-year-old female who states she has had chest pain ever since she had COVID over a year ago. She rated her symptoms at 8/10. States she has also been burping a lot, thinks she may have had some stress and/or reflux. She was admitted overnight for observation. This morning, I saw and examined her. She is at her baseline and wants to go home. Her enzymes are all negative. We plan to discharge. I gave her a prescription for Prilosec. PAST MEDICAL HISTORY: Diabetes, hypertension, ectopic , brain surgery, COVID-19 a year ago. ALLERGIES: None. FAMILY HISTORY: Diabetes. SOCIAL HISTORY: She does not drink, smoke or take drugs. MEDICATIONS: Reviewed, please refer to the MRAD. REVIEW OF SYSTEMS: GENERAL: No history of weight change, weakness or fevers. SKIN: No bruising, hair changes or rashes. EYES: No blurred, double or loss of vision. NOSE AND THROAT: No history of nosebleeds, hoarseness or sore throat. HEART: No history of palpitations, chest pain or shortness of breath on exertion. LUNGS: Denies cough, hemoptysis, wheezing or shortness of breath. GASTROINTESTINAL: Denies changes in appetite, nausea, vomiting, diarrhea or constipation. GENITOURINARY: No history of frequency, urgency, hesitancy or nocturia. NEUROLOGIC: Denies history of numbness, tingling, tremor or weakness. PSYCHIATRIC: No history of panic, anxiety or depression. ENDOCRINE: No history of heat or cold intolerance, polyuria or polydipsia. EXTREMITIES: Denies muscle weakness, joint pain, pain on walking or stiffness. PHYSICAL EXAMINATION: VITALS: Within normal limits and are stable. GENERAL: No apparent distress. Alert and oriented. HEENT: Normal cephalic atraumatic, external auditory canals are patent EYES: Extraocular muscles are intact, pupils are equally round and reactive to light and accommodation MUSCULOSKELETAL: Well developed, well nourished, good range of motion ENDOCRINE: No thyromegaly was palpated LYMPHATICS: No cervical chain or axillary nodes were noted HEMATOPOIETIC: No bruising NECK: Supple, no JVD, no thyromegaly was noted. LUNGS: Clear to auscultation in all lung purdy without rhonchi or wheezing. HEART: RRR, S1, S2 present. Peripheral pulses intact, no obvious murmurs were noted. ABDOMEN: Soft, nontender. Positive bowel sounds no organomegaly, normal bowel sounds. EXTREMITIES: Without any cyanosis, clubbing, or edema. Pedal pulses intact, Homans sign is negative. NEUROLOGIC: Normal speech, normal tone. A and O x 3, moves all extremities, no obvious focal deficits. PSYCHIATRIC: Normal affect, normal mood. Stable. SKIN: No ulcerations or rashes, good skin turgor, no jaundice. VASCULAR: Good capillary refill, neurovascular bundle appears to be intact. ASSESSMENT AND PLAN: Resolving atypical chest pain. We will go ahead and discharge. DISPOSITION: Home. ACTIVITY: As tolerated. DIET: Low sodium. MEDICATIONS: Please see the MRAD. One of the medications was put in there. We gave her Prilosec 20 a day. We will continue her atorvastatin 20 a day, lisinopril 10 a day and metformin 1000 b.i.d. TOTAL TIME: 32 minutes. VINCE/AGUSTINA/ZAN DR: VINCE/cassy TID: [id number]
--- NOTE | 2021-01-16 10:00 | NUR ---
SS following for discharge planning. SS reviewed pt chart and discussed with pt RN. Pt is from home with spouse and is currently on room air. Self pay. Med Assist following. Discharge order on the chart for home with self care.
--- NOTE | 2021-01-16 14:38 | EKG ---
[facility] [address] [place] [address] Test Date: 2021-01-15 Test Time: 16:40:40 Pat Name: DANA RAMIREZ Department: Room: Gender: F Quality Assurance Nurse: : 1975 Requested By: LAURIE VILLA Order Number: [id number] Reading MD: Measurements Intervals Lyons Rate: 92 P: 32 ID: [id number] QRS: -26 QRSD: 78 T: 22 QT: 352 QTc: 440 Interpretive Statements SINUS RHYTHM LEFTWARD AXIS OTHERWISE NORMAL ECG RI6.02 No previous ECG available for comparison
== END 2021-01-16 10:10 | disposition home or self-care (01) ==
LOC: ER 16:29 → 6 SOUTH 18:33
PROVIDERS: ADMIT Internal Medicine; ATTEND Internal Medicine
DX: R07.89 Other chest pain (principal); F03.90 Unspecified dementia, unspecified severity, without behavioral disturbance, psychotic disturbance, mood disturbance, and anxiety; E11.10 Type 2 diabetes mellitus with ketoacidosis without coma; F41.9 Anxiety disorder, unspecified; I10 Essential (primary) hypertension; Z79.899 Other long term (current) drug therapy
CPT/HCPCS: 36415; 71045; 80053; 80307; 81001; 81025; 83690; 83735; 83880; 84484; 85025; 93005; 94640; 96361; 96374; 99285; G0378; J2930; J7030; J7613; G0379